=== PATIENT | male | born 1985 | race Caucasian/White ===

== ENCOUNTER 2019-06-10 21:31 | Emergency (ER) | payer OTHER ==
[~2019-06-10] VITALS: Ht 188 cm; Wt 100.0 kg
[2019-06-10 22:04] VITALS: BP 155/92
--- NOTE | 2019-06-10 22:44 | PHYS DOC ---
Past Medical History Past Medical History: Other Additional Past Surgical Histo: LEFT ARM, BACK SURGERY Smoking Status: Never Smoker Alcohol Use: None Adult General Chief Complaint Chief Complaint: TESTICULAR PAIN OR INJURY HPI HPI Patient is a 33 year old male who presents with persistent left testicle pain x5 days. Patient reports acute onset left testicle pain described as tearing or pulling sensation sensation while doing squats. Pain is persisted and is worse this evening. Pain is rated mild to moderate. Denies hernia, bulging masses, testicular swelling. Patient was seen by his PCP earlier in the week. Testicular ultrasound was ordered and is pending. The patient was instructed to go to the ED if his symptoms worsen. Patient denies flank pain, hematuria, no other acute symptoms or complaints.. [] Review of Systems Review of Systems Review of systems are negative. All other review of symptoms are negative All other systems were reviewed and found to be within normal limits, except as documented in this note. Allergies Allergies Allergies Coded Allergies Type Severity Reaction Last Updated Verified No Known Drug Allergies 06/10/19 No Physical Exam Physical Exam Constitutional: Well developed, well nourished, no acute distress, non-toxic appearance. [] HENT: Normocephalic, atraumatic, bilateral external ears normal, nose normal. [] Eyes: PERRLA, EOMI, conjunctiva normal. [] Neck: Normal range of motion. [] Cardiovascular:Heart rate regular rhythm, no murmur [] Lungs & Thorax: Bilateral breath sounds clear to auscultation [] Abdomen: No abdominal pain, tenderness [] : Penis, uncircumcised, testicles present, minimal tenderness left testicle, no swelling appreciated, no discoloration, no hernias, cremasteric reflexes intact.. [] Neurologic: Alert and oriented X 3, normal motor function, normal sensory function, no focal deficits noted. [] Psychologic: Affect normal, judgement normal, mood normal. [] Current Patient Data Vital Signs Vital Signs Date Time Temp Pulse Resp B/P (MAP) Pulse Ox O2 Delivery O2 Flow Rate FiO2 06/10/19 22:04 98.5 81 18 155/92 (113) 99 Room Air 98.5 Lab Values Laboratory Tests Test 06/10/19 23:00 Urine Collection Type Unknown Urine Color Yellow Urine Clarity Clear Urine pH 6.0 Urine Specific [place] 1.025 Urine Protein Negative mg/dL (NEG-TRACE) Urine Glucose (UA) Negative mg/dL (NEG) Urine Ketones (Stick) Negative mg/dL (NEG) Urine Blood Negative (NEG) Urine Nitrite Negative (NEG) Urine Bilirubin Negative (NEG) Urine Urobilinogen Dipstick 0.2 mg/dL (0.2 mg/dL) Urine Leukocyte Esterase Negative (NEG) Urine RBC 0 /HPF (0-2) Urine WBC 0 /HPF (0-4) Urine Squamous Epithelial Cells Occ /LPF Urine Bacteria 0 /HPF (0-FEW) Urine Mucus Marked /LPF EKG EKG [] Radiology/Procedures Radiology/Procedures [Test US: moderate left testicular hydrocele, small right testicular varicocele] Course & Med Decision Making Course & Med Decision Making Pertinent Labs and Imaging studies reviewed. (See chart for details) [No evidence of torsion. Testicular hydrocele present on ultrasound. Recommend supportive care with PCP follow-up.] Dragon Disclaimer Dragon Disclaimer This electronic medical record was generated, in whole or in part, using a voice recognition dictation system. Departure Departure Impression: Primary Impression: Testicular pain, left Additional Impression: Hydrocele of testis Disposition: HOME, SELF-CARE Condition: STABLE Referrals: SARAH BA (PCP) Additional Instructions: You were evaluated in the emergency department for left testicular pain. An ultrasound was performed which demonstrates a hydrocele, abnormal fluid collection that testicle. This is generally treated with ibuprofen, and an athletic strap. If symptoms persist it is important to follow-up with your PCP for referral to a urologist. Problem Qualifiers AYAN VERDUGO DO Jun 10, 2019 22:44
--- NOTE | 2019-06-10 23:01 | RAD ---
Scrotal ultrasound 06/10/2019 CLINICAL HISTORY: Left scrotal pain and swelling. TECHNIQUE: Using a combination pf real-time ultrasound imaging and color-flow and pulse Doppler imaging techniques, duplex evaluation of the scrotal sac and its contents was performed. Multiple images were obtained. FINDINGS: Both testicles are within normal limits in size and echogenicity. The right testicle measures 4.9 x 3.1 x 2.3 cm in size. The left testicle measures 5.1 x 3.2 x 2.2 cm in size. No focal abnormality of either testicle is seen. Normal color-flow and pulse Doppler imaging to both testicles is noted. Both epididymal heads are within normal limits in size and echogenicity. There is a very small right hydrocele. A mild to moderate left hydrocele is seen. There is a small left varicocele. No abnormality is seen in left inguinal region. IMPRESSION: 1. Very small right hydrocele. Mild to moderate left hydrocele. 2. Small left varicocele. 3. No abnormality of either testicle is seen. Electronically signed by: Mikey Bahena MD (06/10/2019 10:58 PM) [id number]
[2019-06-10 23:09] LABS: BILIRUBIN,URINE NEGATIVE (NEG); CLARITY,URINE CLEAR; COLOR,URINE YELLOW; NITRITE,URINE NEGATIVE (NEG); PROTEIN,URINE NEGATIVE (NEG-TRACE); UROBILINOGEN,URINE 0.2 mg/dL (0.2 mg/dL)
[2019-06-10 23:15] LABS: BACTERIA,URINE 0 /HPF (0-FEW); RBC,URINE 0 /HPF (0-2); SQUAMOUS EPITHELIAL CELL,UR OCC /LPF; WBC,URINE 0 /HPF (0-4)
== END 2019-06-10 23:41 | disposition home or self-care (01) ==
LOC: ER 21:31
DX: N50.812 Left testicular pain (principal); N43.3 Hydrocele, unspecified; Z98.890 Other specified postprocedural states
CPT/HCPCS: 76870; 81001; 99284-25